=== PATIENT | female | born 1960 | race Hispanic/Latino ===

== ENCOUNTER 2023-05-08 19:31 | Inpatient (IN) | payer MEDICARE ==
[~2023-05-08] VITALS: Ht 152.4 cm; Wt 56.0 kg
[2023-05-09] VITALS (85 sets, daily range): BP systolic 100–186; BP diastolic 31–116; PULSE 55–79; RESP 6–45
[2023-05-09] MEDS ORDERED: HYDR100T42 PO (00:26)
[2023-05-09] MEDS ORDERED: AEC81 PO (00:26)
[2023-05-09] MEDS ORDERED: FURO40TA5 PO (00:26)
[2023-05-09] MEDS ORDERED: ACETAMINOPHEN 325 MG TAB PO PRN ×2 (00:30)
[2023-05-09] MEDS ORDERED: LACTATED RINGERS 1000ML 1,000 ML IV SCH (00:30)
[2023-05-09] MEDS ORDERED: NITROGLYCERIN 50MG/D5W 250ML 250 BOT IV SCH (00:30)
[2023-05-09] MEDS ORDERED: HEPARIN 25,000 UNITS/250ML D5W 250 ML IV SCH (00:30)
[2023-05-09] MEDS ORDERED: MORPHINE 4 MG SYG IV PRN (00:30)
[2023-05-09] MEDS ORDERED: MORPHINE 2 MG SYG IV PRN (00:30)
[2023-05-09] MEDS ORDERED: MAGNESIUM 2GM PREMIX 50ML 50 ML IV PRN (01:00)
[2023-05-09] MEDS ORDERED: POTASSIUM CHLORIDE 20MEQ/100ML 100 ML IV PRN (01:00)
[2023-05-09] MEDS ORDERED: KCL 20 MEQ ERTAB PO PRN (01:00)
[2023-05-09] MEDS ORDERED: POTASSIUM CHLORIDE 10% ELIXIR 20 MEQ/15 ML UDCUP PO PRN (01:00)
[2023-05-09 01:31] LABS: BASOPHILS % (AUTO) 1.9 % (0.0-5.0); EOSINOPHILS % (AUTO) 3.3 % (0.0-8.0); HEMATOCRIT 26.7 % (36-48); LYMPHOCYTES % (AUTO) 21.6 % (21.0-51.0); MEAN CORPUSCULAR HEMOGLOBIN 29.9 pg (27.0-33.0); MEAN CORPUSCULAR HGB CONC 31.5 g/dL (32.0-36.0); MONOCYTES % (AUTO) 10.4 % (3.0-13.0); NEUTROPHILS % (AUTO) 62.5 % (40.0-77.0); PLATELET COUNT (AUTO) 154 K/uL (130-400); RED BLOOD CELL COUNT(AUTO) 2.81 MIL/uL (4.00-5.50); RED CELL DISTRIBUTION WIDTH 16.3 % (11.0-15.5); WHITE BLOOD COUNT (AUTO) 6.3 K/uL (4.8-10.8)
[2023-05-09 01:48] LABS: INR 0.93 (0.85-1.15); PROTHROMBIN TIME 10.6 SEC (9.6-11.6)
[2023-05-09 01:49] LABS: PARTIAL THROMBOPLASTIN TIME 42.5 SEC (26.3-35.5)
[2023-05-09 01:58] LABS: ALBUMIN 2.7 g/dL (3.5-5.0); CREATININE 2.2 mg/dL (0.5-1.5); MAGNESIUM 2.3 mg/dL (1.80-2.40); PHOSPHORUS 4.1 mg/dL (2.5-4.9); POTASSIUM 4.7 mmol/L (3.5-5.1); TOTAL PROTEIN, SERUM 6.3 g/dL (6.0-8.3)
[2023-05-09] MEDS ORDERED: HEPARIN 5,000 UNIT VIAL ONE (02:04)
[2023-05-09 02:48] LABS: B-TYPE NATRIURETIC PEPTIDE 1470 pg/mL (0-100)
[2023-05-09] MEDS ORDERED: HEPARIN 5,000 UNIT VIAL SQ PRN (03:00)
[2023-05-09] MEDS: INSULIN HUMULIN R 100 UNIT/ML 3ML SQ SCH ×4 (07:30→21:00)
[2023-05-09] MEDS: FAMOTIDINE 20MG VIAL IV SCH (09:35)
[2023-05-09] MEDS: 0.9% NACL 500ML IV.SOLN 500 ML IV SCH ×2 (10:52→11:48)
[2023-05-09] MEDS: CLOPIDOGREL 75MG TAB PO SCH (13:35)
[2023-05-09] MEDS: ASPIRIN 81MG CHEW TAB PO SCH (13:35)
[2023-05-09] MEDS ORDERED: GUAIFENESIN SUGAR-FREE 100 MG/5 ML UDCUP PO PRN ×2 (18:30→19:00)
[2023-05-09] MEDS: HYDROMORPHONE 1 MG INJ IVP PRN (19:17)
[2023-05-09] MEDS ORDERED: NITROGLYCERIN 0.4 MG SL TAB SL PRN (19:30)
[2023-05-09] MEDS ORDERED: DiphenhydrAMINE HCL 25 MG/10 ML ELIXIR UDCUP PO ONE (21:00)
[2023-05-09] MEDS: ONDANSETRON 4MG INJ IV PRN (23:06)
[2023-05-10] VITALS (85 sets, daily range): BP systolic 97–172; BP diastolic 31–81; PULSE 55–96; RESP 11–37
[2023-05-10] MEDS: 0.9% NACL 500ML IV.SOLN 500 ML IV SCH ×4 (00:19→20:05)
[2023-05-10 04:21] LABS: BASOPHILS % (AUTO) 1.4 % (0.0-5.0); EOSINOPHILS % (AUTO) 4.4 % (0.0-8.0); HEMATOCRIT 24.7 % (36-48); LYMPHOCYTES % (AUTO) 31.9 % (21.0-51.0); MEAN CORPUSCULAR HEMOGLOBIN 30.1 pg (27.0-33.0); MEAN CORPUSCULAR HGB CONC 31.2 g/dL (32.0-36.0); MEAN CORPUSCULAR VOLUME 96.5 fL (79-99); MONOCYTES % (AUTO) 9.4 % (3.0-13.0); NEUTROPHILS % (AUTO) 52.6 % (40.0-77.0); PLATELET COUNT (AUTO) 130 K/uL (130-400); RED BLOOD CELL COUNT(AUTO) 2.56 MIL/uL (4.00-5.50); RED CELL DISTRIBUTION WIDTH 16.5 % (11.0-15.5); WHITE BLOOD COUNT (AUTO) 5.7 K/uL (4.8-10.8)
[2023-05-10 04:42] LABS: MAGNESIUM 2.2 mg/dL (1.80-2.40); POTASSIUM 4.9 mmol/L (3.5-5.1)
[2023-05-10] MEDS: INSULIN HUMULIN R 100 UNIT/ML 3ML SQ SCH ×4 (07:30→21:00)
[2023-05-10] MEDS: FAMOTIDINE 20MG VIAL IV SCH (08:14)
[2023-05-10] MEDS: CLOPIDOGREL 75MG TAB PO SCH (08:14)
[2023-05-10] MEDS: METOPROLOL TARTRATE 25 MG TAB PO SCH ×2 (08:14→20:16)
[2023-05-10] MEDS: ASPIRIN 81MG CHEW TAB PO SCH (08:14)
[2023-05-10] MEDS: ONDANSETRON 4MG INJ IV PRN (15:48)
[2023-05-10] MEDS ORDERED: FUROSEMIDE 20MG VIAL IV ONE ×2 (18:30→20:00)
[2023-05-10] MEDS: ATORVASTATIN 40 MG TABLET PO SCH (20:16)
[2023-05-10 20:40] LABS: ABG BASE EXCESS -6.1 mmol/L (-2.0-3.0); ABG HCO3 19.1 mmol/L (21.0-28.0); ABG OXYGEN SATURATION 99.5 % (95.0-99.0); ABG PCO2 37 mmHg (32-45)
[2023-05-10] MEDS ORDERED: HEPARIN 5,000 UNIT VIAL IV SCH (21:30)
[2023-05-11] VITALS (76 sets, daily range): BP systolic 99–156; BP diastolic 36–85; PULSE 72–102; RESP 7–27
[2023-05-11 05:48] LABS: HEMATOCRIT 24.6 % (36-48); MEAN CORPUSCULAR HEMOGLOBIN 30.6 pg (27.0-33.0); MEAN CORPUSCULAR HGB CONC 31.3 g/dL (32.0-36.0); MEAN CORPUSCULAR VOLUME 97.6 fL (79-99); PLATELET COUNT (AUTO) 130 K/uL (130-400); RED BLOOD CELL COUNT(AUTO) 2.52 MIL/uL (4.00-5.50); RED CELL DISTRIBUTION WIDTH 16.3 % (11.0-15.5); WHITE BLOOD COUNT (AUTO) 9.1 K/uL (4.8-10.8)
[2023-05-11 06:05] LABS: POTASSIUM 4.5 mmol/L (3.5-5.1)
[2023-05-11] MEDS: INSULIN HUMULIN R 100 UNIT/ML 3ML SQ SCH ×4 (07:30→20:16)
[2023-05-11 07:31] LABS: BASOPHILS % (MANUAL) 2 % (0-2); LYMPHOCYTES % (MANUAL) 12 % (22-44); MONOCYTES % (MANUAL) 8 % (2-9); SEGMENTED NEUTROPHILS % 78 % (40-70)
[2023-05-11 07:37] LABS: MAN.DIFF COMMENT-IMPRESSION MANUAL DIFFERENTIAL; PLATELET MORPHOLOGY COMMENT ADEQUATE
[2023-05-11] MEDS: METOPROLOL TARTRATE 25 MG TAB PO SCH ×2 (10:04→20:15)
[2023-05-11] MEDS: ASPIRIN 81MG CHEW TAB PO SCH (10:04)
[2023-05-11] MEDS: FAMOTIDINE 20MG VIAL IV SCH (10:04)
[2023-05-11] MEDS: CLOPIDOGREL 75MG TAB PO SCH (10:04)
[2023-05-11] MEDS: FUROSEMIDE 20MG VIAL IV SCH (10:05)
[2023-05-11] MEDS: HYDROMORPHONE 1 MG INJ IVP PRN (16:56)
[2023-05-11] MEDS ORDERED: ISOSORBIDE MONO 30MG SR TAB PO ONE (18:00)
[2023-05-11] MEDS ORDERED: DIPHENHYDRAMINE HCL 25 MG CAPSULE PO ONE (19:30)
[2023-05-11] MEDS ORDERED: DIPHENHYDRAMINE HCL 25 MG CAPSULE ONE (19:54)
[2023-05-11] MEDS: ATORVASTATIN 40 MG TABLET PO SCH (20:15)
[2023-05-12] VITALS (30 sets, daily range): BP systolic 100–153; BP diastolic 41–73; PULSE 67–87; RESP 5–27
[2023-05-12 04:13] LABS: HEMATOCRIT 23.9 % (36-48); MEAN CORPUSCULAR HEMOGLOBIN 30.9 pg (27.0-33.0); MEAN CORPUSCULAR HGB CONC 31.8 g/dL (32.0-36.0); MEAN CORPUSCULAR VOLUME 97.2 fL (79-99); MONOCYTES % (AUTO) 8.9 % (3.0-13.0); NEUTROPHILS % (AUTO) 64.4 % (40.0-77.0); NUCLEATED RED BLOOD CELLS 0.3 % (0.0-0.19); PLATELET COUNT (AUTO) 136 K/uL (130-400); RED BLOOD CELL COUNT(AUTO) 2.46 MIL/uL (4.00-5.50); RED CELL DISTRIBUTION WIDTH 16.5 % (11.0-15.5); WHITE BLOOD COUNT (AUTO) 7.1 K/uL (4.8-10.8)
[2023-05-12 04:29] LABS: ALBUMIN 2.5 g/dL (3.5-5.0); CREATININE 2.3 mg/dL (0.5-1.5); POTASSIUM 5.1 mmol/L (3.5-5.1); TOTAL PROTEIN, SERUM 6.6 g/dL (6.0-8.3)
[2023-05-12] MEDS: INSULIN HUMULIN R 100 UNIT/ML 3ML SQ SCH ×4 (06:40→19:59)
[2023-05-12] MEDS: FAMOTIDINE 20MG VIAL IV SCH (08:47)
[2023-05-12] MEDS: ENOXAPARIN SODIUM 60 MG/0.6 ML SQ SCH (08:47)
[2023-05-12] MEDS: ASPIRIN 81MG CHEW TAB PO SCH (08:48)
[2023-05-12] MEDS: CLOPIDOGREL 75MG TAB PO SCH (08:48)
[2023-05-12] MEDS: FUROSEMIDE 20MG VIAL IV SCH (08:50)
[2023-05-12] MEDS: METOPROLOL TARTRATE 25 MG TAB PO SCH ×2 (08:50→21:44)
[2023-05-12] MEDS: HYDROMORPHONE 1 MG INJ IVP PRN (12:29)
[2023-05-12] MEDS ORDERED: NALOXONE HCL 0.4 MG/1 ML ML ONE (12:46)
[2023-05-12] MEDS ORDERED: LACTULOSE 20 GM/30 ML UDCUP PO ONE (13:30)
[2023-05-12] MEDS: NALOXONE HCL 0.4 MG/1 ML ML IVP SCH (13:36)
[2023-05-12] MEDS: ATORVASTATIN 40 MG TABLET PO SCH (21:40)
[2023-05-13] VITALS (8 sets, daily range): BP systolic 124–148; BP diastolic 54–75; PULSE 55–76; RESP 16–20
[2023-05-13] MEDS: INSULIN HUMULIN R 100 UNIT/ML 3ML SQ SCH ×4 (05:56→21:00)
[2023-05-13] MEDS: CLOPIDOGREL 75MG TAB PO SCH (08:04)
[2023-05-13] MEDS: ASPIRIN 81MG CHEW TAB PO SCH (08:04)
[2023-05-13] MEDS: METOPROLOL TARTRATE 25 MG TAB PO SCH ×2 (08:04→20:25)
[2023-05-13] MEDS: ISOSORBIDE MONO 30MG SR TAB PO SCH (08:04)
[2023-05-13] MEDS: FUROSEMIDE 20MG VIAL IV SCH (08:04)
[2023-05-13] MEDS: FAMOTIDINE 20MG VIAL IV SCH (08:04)
[2023-05-13] MEDS: ENOXAPARIN SODIUM 60 MG/0.6 ML SQ SCH (08:05)
[2023-05-13] MEDS: NALOXONE HCL 0.4 MG/1 ML ML IVP SCH (11:54)
[2023-05-13] MEDS: ATORVASTATIN 40 MG TABLET PO SCH (20:25)
[2023-05-14] VITALS: BP 135/52; PULSE 64; RESP 16
[2023-05-14 04:00] VITALS: BP 139/64; PULSE 70; RESP 18
[2023-05-14] MEDS: INSULIN HUMULIN R 100 UNIT/ML 3ML SQ SCH (06:01)
[2023-05-14 07:30] VITALS: PULSE 66; RESP 18
[2023-05-14 08:00] VITALS: BP 118/41; PULSE 69; RESP 17
[2023-05-14 09:30] LABS: HEMATOCRIT 26.4 % (36-48); MEAN CORPUSCULAR HEMOGLOBIN 30.2 pg (27.0-33.0); MEAN CORPUSCULAR HGB CONC 30.7 g/dL (32.0-36.0); MEAN CORPUSCULAR VOLUME 98.5 fL (79-99); RED BLOOD CELL COUNT(AUTO) 2.68 MIL/uL (4.00-5.50); RED CELL DISTRIBUTION WIDTH 16.8 % (11.0-15.5); WHITE BLOOD COUNT (AUTO) 6.3 K/uL (4.8-10.8)
[2023-05-14] MEDS: ASPIRIN 81MG CHEW TAB PO SCH (09:34)
[2023-05-14] MEDS: METOPROLOL TARTRATE 25 MG TAB PO SCH (09:34)
[2023-05-14] MEDS: ISOSORBIDE MONO 30MG SR TAB PO SCH (09:34)
[2023-05-14] MEDS: CLOPIDOGREL 75MG TAB PO SCH (09:34)
[2023-05-14] MEDS: ENOXAPARIN SODIUM 60 MG/0.6 ML SQ SCH (09:35)
[2023-05-14] MEDS: FUROSEMIDE 20MG VIAL IV SCH (09:35)
[2023-05-14] MEDS: FAMOTIDINE 20MG VIAL IV SCH (09:35)
[2023-05-14 09:44] LABS: ALBUMIN 2.5 g/dL (3.5-5.0); CREATININE 2.6 mg/dL (0.5-1.5); MAGNESIUM 2.1 mg/dL (1.80-2.40); POTASSIUM 3.8 mmol/L (3.5-5.1); TOTAL PROTEIN, SERUM 6.6 g/dL (6.0-8.3)
[2023-05-14 09:51] LABS: CHOLESTEROL 145 mg/dL (<200); HDL CHOLESTEROL 47 mg/dL (35-85); LDL DIRECT 69 mg/dL (0-99); TRIGLYCERIDES 121 mg/dL (30-200)
[2023-05-14] MEDS ORDERED: METO25 PO (09:59)
[2023-05-14] MEDS ORDERED: ATOR40TA69 PO (09:59)
[2023-05-14] MEDS ORDERED: Nitroglycerin 0.4MG Sl Tab SL (09:59)
[2023-05-14] MEDS ORDERED: FURO10VI5 IV (09:59)
[2023-05-14] MEDS ORDERED: CLOP-31 PO (09:59)
== END 2023-05-14 11:18 | disposition home or self-care (01) | DRG 281 ==
LOC: 2CV 23:45 → 2BH 05-09 11:28 → 2AH 05-12 11:28 → 3BH 05-13 15:08
PROVIDERS: ADMIT Internal Medicine; ATTEND Internal Medicine
DX: I21.4 Non-ST elevation (NSTEMI) myocardial infarction (principal); N17.9 Acute kidney failure, unspecified; N18.4 Chronic kidney disease, stage 4 (severe); Z20.822 Contact with and (suspected) exposure to COVID-19; I12.9 Hypertensive chronic kidney disease with stage 1 through stage 4 chronic kidney disease, or unspecified chronic kidney disease; I25.110 Atherosclerotic heart disease of native coronary artery with unstable angina pectoris; E11.22 Type 2 diabetes mellitus with diabetic chronic kidney disease; D63.8 Anemia in other chronic diseases classified elsewhere; E11.51 Type 2 diabetes mellitus with diabetic peripheral angiopathy without gangrene; E78.5 Hyperlipidemia, unspecified; Z79.02 Long term (current) use of antithrombotics/antiplatelets; Z79.82 Long term (current) use of aspirin; Z86.73 Personal history of transient ischemic attack (TIA), and cerebral infarction without residual deficits; Z89.512 Acquired absence of left leg below knee; Z89.611 Acquired absence of right leg above knee; Z90.710 Acquired absence of both cervix and uterus; Z95.5 Presence of coronary angioplasty implant and graft
CPT/HCPCS: 36415; 36600; 71045; 78582; 80048; 80053; 80061; 82803; 82948; 83036; 83735; 83880; 84100; 84484; 85025; 85027; 85378; 85610; 85730; 86850; 86900; 86901; 87040; 87635; 93005; 94660; A4344; A9540; A9558; G0378; J1170; J1644; J1650; J1940; J2310; J2405; J3490; J7040; J7120; Q0163